=== PATIENT | male | born 1935 | race Caucasian/White ===

== ENCOUNTER → 2020-02-19 10:34 | Outpatient (CLI) | payer OTHER | END | disposition home or self-care (01) | LOC: D.HCCECHO 10:30 | PROVIDERS: ATTEND Internal Medicine Cardiovascular Disease | DX: I20.9 Angina pectoris, unspecified (principal) ==

== ENCOUNTER 2020-03-02 12:12 | Outpatient (CLI) | payer OTHER ==
[~2020-03-02] VITALS: Ht 177.8 cm; Wt 93.5 kg
--- NOTE | ~2020-03-02 | HEMODYNAMI ---
PATIENT:PANCHO SHAW MEDICAL RECORD: [id number] : 31 LOCATION:D.CAT ADMISSION DATE: 03/02/20 Generatedon:03/02/202014:35 Patient name: PANCHO SHAW Patient #: [id number] SSN: [id number] : 1935 Date of study: 03/02/2020 Page: Of Hemodynamic Procedure Report Patient Data Patient Demographics Procedure consent was obtained First Name: PANCHO Gender: Male Last Name: VALERIA : 1935 Middle Initial: E Age: 85 year(s) Patient #: [id number] Race: SSN: [id number] Additional ID: [id number] Contact details Address: [address] [place] [address] [facility] State: [place] City: [place] Zip code: [address] Past Medical History Allergies Allergen Reaction Date Comments Reported Other allergy 03/02/2020 Sulfa Admission Admission Data Admission Date: 03/02/2020 Admission Time: 12:12 Admit Source: Other Insurance Payor: Private health insurance [facility] #: [id number] Height (in.): 69.69 BSA: 2.1 (m2) Height (cm.): 177 BMI: 29.68 (kg/m2) Weight (lbs.): 205.03 Weight (kg.): 93 Lab Results Lab Result Date: 03/02/2020 Lab Result Time: 12:50 Biochemistry Name Units Result Min Max BUN mg/dl 31 --(----)-* 7 18 Creatinine mg/dl 1.8 --(----)-* 0.6 1.3 CBC Name Units Result Min Max Hematocrit % 40.5 -*(----)-- 42 54 Hemoglobin g/dl 13.2 -*(----)-- 13.5 17.5 Procedure Procedure Types Cath Procedure Diagnostic Procedure [facility] w/Coronaries Sedation Charges Moderate Sedation up to 30 minutes PCI Procedure Coronary Stent Coronary Stent Initial Hemochron ACT Test Procedure Description Procedure Date Procedure Date: 03/02/2020 Procedure Start Time: 14:07 Procedure End Time: 14:32 Procedure Staff Name Function Carlo Villalobos MD Performing Physician Salma Owens RT Scrub Kareem Lorenzo RN Nurse Snow Moreno RT Monitor Procedure Data Cath Procedure Fluoroscopy Diagnostic fluoroscopy Total fluoroscopy Time: 7.2 time: 7.2 min min Diagnostic fluoroscopy Total fluoroscopy dose: 983 dose: 983 mGy mGy Contrast Material Contrast Material Type Amount (ml) Isovue 300 90 Entry Location Entry Primary Successful Side Size Upsize Upsize Entry Closure Lewis ccessful Closure Location (Fr) 1 (Fr) 2 (Fr) Remarks Device Remarks Radial Right 6 Fr Mechanical artery Short Compression Estimated blood loss: 10 ml Diagnostic catheters Device Type Used For End Catheter Placement DIAGNOSTIC Kenneth 110cm Procedure 5Fr catheter (633005) DIAGNOSTIC Sevier 110cm 5 Procedure Fr catheter ([id number]) Procedure Complications No complications Procedure Medications Medication Administration Route Dosage 0.9% NaCl I.V. 100 ml/hr Oxygen etCO2 Nasal cannula 2 l/min Heparin Flush Bag added to field 2 bags (1000units/500ml NS) Lidocaine 2% added to field 20 Radial Cocktail added to field 1 syringe (Verapamil 2mg/Nitro 400mcg/Heparin 1500units) Versed I.V. 1 mg Fentanyl I.V. 50 mcg Radial Cocktail I.A. 1 syringe (Verapamil 2mg/Nitro 400mcg/Heparin 1500units) Versed I.V. 1 mg Fentanyl I.V. 50 mcg Heparin Bolus I.V. 9000 units Plavix P.O. 600 mg Hemodynamics Rest BSA: 2.1 (m2) HGB: 13.2 (g/dl) O2 Consumption: Estimated: 239.75 (ml/min) O2 Con sumption indexed: Estimated:114.17 (ml/min/m) Heart Rate: 72 (bpm) Pressure Samples Time Site Value (mmHg) Purpose Heart Use Rate(bpm) 14:10 LV 93/-7,-3 Snapshot 79 Gradients Valve Time Site Site Mean SEP/DFP Peak To Heart Use 1 2 (mmHg) (sec/min) Peak Rate (mmHg) (bpm) Aortic 14:10 LV AO 50 Snapshots Pre Cath Intra NCS Post Cath Vital Signs Time Heart Resp SPO2 etCO2 NIBP Rhythm Pain Sedation Rate (ipm) (%) (mmHg) (mmHg) Status Level (bpm) 13:52:42 54 14 99 17.1 121/62(94) NSR 0 (11) 10(A) , No pain 13:56:56 58 12 96 0 118/68(80) NSR 0 (11) 10(A) , No pain 14:01:10 58 10 96 14.9 113/65(77) NSR 0 (11) 10(A) , No pain 14:05:22 57 11 96 17.1 114/65(79) NSR 0 (11) 10(A) , No pain 14:09:47 57 12 94 34.4 115/47(85) NSR 0 (11) 10(A) , No pain 14:13:58 75 10 92 2.9 89/57(65) NSR 0 (11) 9(A) , No pain 14:18:02 73 12 94 17.1 94/61(79) NSR 0 (11) 9(A) , No pain 14:22:10 60 10 91 17.1 98/54(79) NSR 0 (11) 10(A) , No pain 14:26:20 56 9 91 16.4 101/53(71) NSR 0 (11) 10(A) , No pain 14:30:30 57 12 94 28.4 122/58(95) NSR 0 (11) 10(A) , No pain Medications Time Medication Route Dose Verified Delivered Reason Not es Effectiveness by by 13:50:27 0.9% NaCl I.V. 100 Kareem Kareem Per physician ml/hr Maura Lorenzo RN RN 13:50:39 Oxygen etCO2 2 l/min Kareem Kareem for low 02 sats Nasal Lorigan Lorigan cannula RN RN 13:50:52 Heparin Flush added 2 bags Kareem Kareem used for Bag to Lorigan Lorigan procedure (1000units/500ml RN RN NS) 13:51:05 Lidocaine 2% added 20ml Kareem Kareem for local to vial Lorigan Lorigan anesthetic RN RN 13:51:20 Radial Cocktail added 1 Kareem Kareem used for (Verapamil to syringe Lorigan Lorigan procedure 2mg/Nitro field RN RN 400mcg/Heparin 1500units) 13:59:16 Versed I.V. 1 mg Kareem Kareem for sedation Lorigan Lorigan RN RN 13:59:25 Fentanyl I.V. 50 mcg Kareem Kareem for sedation Maura Lorenzo RN RN 14:08:33 Radial Cocktail I.A. 1 Kareem Carlo for (Verapamil syringe Maura Villalobos MD vasodilation 2mg/Nitro RN 400mcg/Heparin 1500units) 14:08:42 Versed I.V. 1 mg Kareem Kareem for sedation Maura Lorenzo RN RN 14:08:48 Fentanyl I.V. 50 mcg Kareem Kareem for sedation Maura Lorenzo RN RN 14:20:38 Heparin Bolus I.V. 9,000 Kareem Kareem for units Maura Lorenzo anticoagulation RN RN 14:30:05 Plavix P.O. 600 mg Kareem Kareem for Maura Lorenzo antiplatelet RN RN therapy Procedure Log Time Note 13:21:54 Informed consent obtained and on chart 13:22:49 Patient allergic to Other allergySulfa 13:23:36 Admit Source: Other 13:30:12 Kareem Lorenzo RN sent for patient. Start room use. 13:40:45 Patient Height : 69.69 inches 13:40:47 Patient Weight : 205.03 lbs 13:40:53 Insurance Payor : Private health insurance 13:41:44 Lab Result : BUN 31 mg/dl 13:41:44 Lab Result : Creatinine 1.8 mg/dl 13:42:09 Procedure Status Elective Heart Cath (OP). 13:42:18 Time tracking: Regular hours (M-F 7:00 - 5:00) 13:42:21 Plan of Care:Hemodynamics will remain stable., Cardiac rhythm will remain stable., Comfort level will be maintained., Respiratory function will remain adequate., Patient/ family verbilizes understanding of procedure., Procedure tolerated without complication., Recovers from procedure without complications.. 13:42:25 Patient received from Pre/Post Procedure Room to CCL 1 Alert and oriented. Tansferred to table in Supine position. 13:42:26 Warm blankets applied, and nader hugger turned on for patient comfort. 13:42:26 Correct patient and procedure confirmed by team. 13:42:27 ECG and BP/O2 sat monitors applied to patient. 13:42:34 H&P Date Dictated: 02/05/2020 Within 30 days and on chart., H&P Addendum completed by physician on day of procedure. (MUST COMPLETE FOR ALL OUTPATIENTS). 13:42:36 Pre-procedure instructions explained to patient. 13:42:36 Pre-op teaching completed and patient verbalized understanding. 13:42:37 Family in waiting room. 13:42:39 Patient NPO since Breakfast. 13:42:41 Is the patient allergic to Iodine/contrast media? No. 13:50:27 0.9% NaCl 100 ml/hr I.V. was administered by Kareem Lorenzo RN; Per physician; Verbal order read back and verified. 13:50:39 Oxygen 2 l/min etCO2 Nasal cannula was administered by Kareem Lorenzo RN; for low 02 sats; Verbal order read back and verified. 13:50:52 Heparin Flush Bag (1000units/500ml NS) 2 bags added to field was administered by Kareem Lorenzo RN; used for procedure; Verbal order read back and verified. 13:51:05 Lidocaine 2% 20ml vial added to field was administered by Kareem Lorenzo RN; for local anesthetic; Verbal order read back and verified. 13:51:20 Radial Cocktail (Verapamil 2mg/Nitro 400mcg/Heparin 1500units) 1 syringe added to field was administered by Kareem Lorenzo RN; used for procedure; Verbal order read back and verified. 13:51:31 Vital chart was started 13:51:35 Baseline sample Acquired. 13:51:40 Rhythm: sinus rhythm 13:51:42 Full Disclosure recording started 13:51:45 Is patient on blood thinner?No 13:51:48 Patient diabetic? No. 13:54:24 Previous problem with sedation/anesthesia? No ? 13:54:25 Snore? No 13:54:26 Sleep apnea? No 13:54:27 Deviated septum? No 13:54:27 Opens mouth fully? Yes 13:54:28 Sticks out tongue? Yes 13:54:29 Airway obstruction? No ? 13:54:31 Dentures? No ? 13:54:36 Pre procedure: right dorsailis pedis pulse 2+ Normal; easily identifiable; not easily obliterated 13:54:38 Modified David's test Ulnar > 7 seconds. 13:54:39 Patient pain scale 0/10 ?. 13:54:45 IV patent on arrival in right forearm with 0.9% NaCl at [facility]. 13:54:59 Lab results completed and on chart. 13:55:35 Lab Result : Hemoglobin 13.2 g/dl 13:55:35 Lab Result : Hematocrit 40.5 % 13:55:45 Stress Test: yes; abnormal inferior, apical, lateral 13:56:00 Risk of Mortality: 0.6% 13:56:05 Risk of blood transfusion: 1.2% 13:56:16 Risk of BRO: 5.1% 13:56:30 Right Radial & Right Groin area was prepped with chlora-prep and draped in sterile fashion 13:56:30 Alarms reviewed by R. N. 13:56:31 Sharps counted by scrub and verified by R.N. 13:56:37 Use device set Radial Dx or PCI 13:56:37 ACIST Syringe (80732) opened to sterile field. 13:56:38 Medline Cath Pack ([id number]) opened to sterile field. 13:56:38 Bag Decanter (2002S) opened to sterile field. 13:56:39 ACIST Hand Control (06676) opened to sterile field. 13:56:39 ACIST Manifold (85658) opened to sterile field. 13:56:39 Tegaderm 4 x 4 (1626W) opened to sterile field. 13:56:40 MBrace Wrist Support ([id number]) opened to sterile field. 13:56:51 SHEATH 6FR RAIN (5853684) opened to sterile field. 13:56:52 EMERALD Guide Wire (785-167) opened to sterile field. 13:56:54 NEEDLE Cook 21G 4cm Radial (K20866) opened to sterile field. 13:57:01 Physician arrived 13:57:02 --------ALL STOP TIME OUT------ 13:57:02 Final Timeout: patient, procedure, and site verified with staff and physician. All members of the team are in agreement. 13:57:03 Right Radial & Right Groin site verified by team. 13:57:07 Fire Safety Assessment: A--An alcohol-based skin anteseptic being used preoperatively., C--Open oxygen or nitrous oxide is being used., D--An ESU, laser, or fiber-optic light is being used. 13:57:09 Physical assessment completed. ASA score P 2 - A patient with mild systemic disease as per Carlo Villalobos MD. 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 13:57:14 Maximum allowable contrast dose (3.7 X eGFR X 0.75)105 ml. 13:57:17 Sedation plan: IV Moderate Sedation Medication:Versed, Fentanyl 13:59:16 Versed 1 mg I.V. was administered by Kareem Lorenzo RN; for sedation; Verbal order read back and verified. 13:59:25 Fentanyl 50 mcg I.V. was administered by Kareem Lorenzo RN; for sedation; Verbal order read back and verified. 14:02:25 Zero performed for pressure channel P1 14:05:21 Procedure started. 14:07:27 Local anesthetic to right radial artery with Lidocaine 2% by Carlo Villalobos MD.INITIAL ACCESS ONLY 14:08:33 Radial Cocktail (Verapamil 2mg/Nitro 400mcg/Heparin 1500units) 1 syringe I.A. was administered by Carlo Villalobos MD; for vasodilation; Verbal order read back and verified. 14:08:42 Versed 1 mg I.V. was administered by Kareem Lorenzo RN; for sedation; Verbal order read back and verified. 14:08:48 Fentanyl 50 mcg I.V. was administered by Kareem Lorenzo RN; for sedation; Verbal order read back and verified. 14:09:01 A 6 Fr Short sheath was inserted into the Right Radial artery 14:09:11 A DIAGNOSTIC Kenneth 110cm 5Fr catheter (763699) was advanced over the wire and used for Procedure. 14:10:21 LV gram done using CHANG 14:10:23 Injector settings: Ml/sec: 5, Volume: 15, 14:10:24 LV hemodynamics recorded. 14:10:38 EF : 50 % 14:11:38 RCA angiography performed. 14:12:42 Catheter exchanged over wire. 14:12:49 UNABLE TO ENGAGE LCA 14:13:31 A DIAGNOSTIC Sevier 110cm 5 Fr catheter (991801) was advanced over the wire and used for Procedure. 14:15:31 LCA angiography performed. 14:15:35 ACCDominant side:Right 14:15:39 Catheter exchanged over wire. 14:16:20 Proceeding to intervention. 14:17:29 INFLATOR Merit Context Aware Solutionspak (QA5116) opened to sterile field. 14:17:29 BMW 300cm Straight Hodges 2 wire (6518104) opened to sterile field. 14:17:38 TUBING High Pressure Extension Tubing (Wilfredo) ([id number]) opened to sterile field. 14:17:50 GUIDE 6FR XBLAD 3.5 catheter (00856373) opened to sterile field. 14:17:58 Pre PCI Site: [place] LAD has 80% stenosis. 14:18:04 6 Fr XBLAD 3.5 guide catheter was inserted over the wire 14:20:38 Heparin Bolus 9,000 units I.V. was administered by Kareem Lorenzo RN; for anticoagulation; Verbal order read back and verified. 14:21:26 BMW 300 wire advanced. 14:22:01 Wire advanced across lesion. 14:25:56 Place stent Inflation Number: 1 A INTEGRITY RX 3.0 x 15 stent ([id number]) was prepped and advanced across the Mid LAD . The stent was deployed at 12 FIDENCIO for 0:00 (min:sec) . 14:26:25 Stent catheter was removed intact over wire. 14:26:25 Wire removed. 14:26:26 Guide catheter removed. 14:26:49 ZEPHYR REGULAR TR BAND (271922) opened to sterile field. 14:27:44 Sheath removed intact; hemostasis achieved with Mechanical Compression to the Right Radial artery. 14:28:00 Procedure ended.(Physican Out) 14:28:16 Fluoroscopy time 07.20 minutes. 14:28:20 Fluoroscopy dose: 983 mGy 14:28:20 Flurop Dose total: 983 14:28:27 Dose Area Product 87742 mGy/cm. 14:28:30 Contrast amount:Isovue 300 90ml. 14:28:32 Maximum allowable dose exceeded? No. 14:28:33 Sharps counted by scrub and verified by R.N. 14:28:35 Dunse[place] band inflated with 10cc of air. 14:28:38 Post-procedure physical assessment completed. ASA score P 2 - A patient with mild systemic disease as per Carlo Villalobos MD. 14:28:44 Post procedure rhythm: sinus rhythm 14:28:49 Estimated blood loss: 10 ml 14:28:50 Post procedure instruction explained to patient.Patient verbalizes understanding. 14:28:51 Patient needs reinforcement of post procedure teaching. 14:29:47 Procedure type changed to Cath procedure, Diagnostic procedure, LHC, [facility] w/Coronaries, Sedation Charges, Moderate Sedation up to 30 minutes, PCI procedure, Coronary Stent, Coronary Stent Initial, Hemochron ACT Test 14:30:05 Plavix 600 mg P.O. was administered by Kareem Lorenzo RN; for antiplatelet therapy; Verbal order read back and verified. 14:30:21 Procedure and supply charges have been captured, reviewed, submitted and are correct. 14:30:23 Procedure Complication : No complications 14:30:30 [facility] Findings: MVD- PCI performed (see procedure note) 14:30:31 Operative report dictated upon procedure completion. 14:30:31 See physician's report for complete and final results. 14:32:36 Vital chart was stopped 14:32:47 Report given to Pre/Post Procedure Room. 14:32:49 Patient transfered to Pre/Post Procedure Room with Bed. 14:32:51 Procedure ended. 14:32:51 Full Disclosure recording stopped 14:32:58 ACC-PCI Only Patient was given prescriptions, or instructed by Carlo Villalobos MD to start/continue the following medications upon discharge: Plavix 14:32:59 End room use (Document Last) 14:34:11 ACT drawn and resulted at ( High ) out of range seconds. (normal therapeutic range 180-240 seconds). 14:35:07 End room use (Document Last) 14:35:25 End room use (Document Last) Intervention Summary Intervention Notes Time ActionType Lesion and Equipment Action# Pressure Duration Attributes Used 14:25:56 Place stent Mid LAD INTEGRITY RX 1 12 00:00 3.0 x 15 stent ([id number]) Device Usage Item Name Manufacture Quantity Catalog Hospital Part Current Minim al Lot# / Number Charge Number Stock Stock Serial# Code ACIST Acist 1 38816 736567 477120 251931 20 Syringe Medical (23538) Systems Inc Medline Cath Medline 1 [id number] 426753 94325 863993 5 Pack ([id number]) Bag Decanter Microtek 1 110821 01539 478060 5 () Medical Inc. ACIST Hand Acist 1 16313 395542 942273 643940 5 Control Medical (05059) Systems Inc ACIST Acist 1 09043 690713 189835 571004 5 Manifold Medical (77470) Systems Inc Tegaderm 4 x 3M 1 1626W 073239 734433 005245 5 4 (1626W) MBrace Wrist Advanced 1 140-0250-00 850180 22688 072881 5 Support Vascular (754430963) Dynamics SHEATH 6FR Cardinal 1 9755161 132091 6496978 651710 5 [facility] Health (7232436) EMERALD Cardinal 1 502-455 060229 163692 126208 5 Guide Wire Health (502-455) NEEDLE Cook Cook Medical 1 U49757 541727 919173 301319 5 21G 4cm Radial (N38907) DIAGNOSTIC Terumo 1 40-5023 557054 065279 045933 5 Kenneth 110cm 5Fr catheter (908653) DIAGNOSTIC Terumo 1 40-5013 763618 579222 352550 5 Sevier 110cm 5 Fr catheter (877162) INFLATOR Merit 1 FK4312 909082 967665 914645 15 [facility] Medical BasixCompak (QB9592) BMW 300cm Vera 1 6066343 255108 598870 897039 5 Straight Vascular Hodges 2 wire (2813115) TUBING High Merit 1 [id number] 698726 39696 805954 10 Pressure Medical Extension Tubing (Wilfredo) (FC3110D) GUIDE 6FR Cardinal 1 69664302 682738 014731 260878 10 XBLAD 3.5 Health catheter (99721517) INTEGRITY RX Medtronic 1 [id number] 222813 587763 881280 5 [id number] 3.0 x 15 stent ([id number]) ZEPHYR Cardinal 1 054121 376629 4733185 368591 5 REGULAR TR Health BAND (971212) Signature Audit [place] Stage Time Signature Unsigned Intra-Procedure 03/02/2020 Snow Moreno 2:35:07 PM RT(R) Intra-Procedure 03/02/2020 Kareem 2:35:25 PM Maura MICHAELS Intra-Procedure 03/02/2020 Carlo Villalobos MD 2:35:[address] [facility] [address] [facility] [place] [address]
[2020-03-02] MEDS ORDERED: HYTRIN10 MG PO (12:31)
[2020-03-02] MEDS ORDERED: PEPCID AC20 MG PO (12:32)
[2020-03-02] MEDS ORDERED: LIPITOR10 MG PO (12:32)
[2020-03-02 12:51] VITALS: BP 123/77; Ht 177.8 cm; Wt 93.5 kg
[2020-03-02 13:30] LABS: HEMATOCRIT 40.5 % (42.0-54.0); HEMOGLOBIN 13.2 g/dL (13.5-17.5); LYMPHOCYTES 18.8 % (15-50); MCH 31.8 pg (26.0-34.0); MCHC 32.6 g/dL (31.0-37.0); MCV 97.6 fL (80.0-100.0); MEAN PLATELET VOLUME 10.5 fL (7.4-10.4); NEUTROPHILS 69.1 % (40-80); PLATELET COUNT 161 10x3/uL (130-400); RBC 4.15 10x6/uL (4.20-6.10); RDW 13.1 % (11.5-14.5); WBC 8.7 10x3/uL (4.8-10.8)
[2020-03-02 13:33] LABS: ANION GAP 12.5 mmol/L (8-16); CALCIUM 8.6 mg/dL (8.5-10.1); CARBON DIOXIDE 25.6 mmol/L (21.0-32.0); CHOL - HDL RATIO 3.7 ratio (2.3-4.9); CREATININE - SERUM 1.8 mg/dL (0.6-1.3); LDL-HDL RATIO 2.3 ratio (1.5-3.5); POTASSIUM - SERUM 4.1 mmol/L (3.5-5.1)
--- NOTE | 2020-03-02 14:45 | NUR ---
PT REC'D TO ROOM 3 VIA STRETCHER FROM POSTAL CARRIER. MONITORS ESTAB. DAUGHTER AT BS. SEE GLASS ENAMEL MIXER. ALARMS ON AND C/L IN REACH.
--- NOTE | 2020-03-02 15:00 | NUR ---
R WRIST Z BAND SITE C/D/I, NO S/S BLEEDING OR SWELLING. PULSES PALP. VSS. C/L IN REACH.
--- NOTE | 2020-03-02 15:30 | NUR ---
R WRIST SITE C/D/I, NO S/S BLEEDING OR HEMATOMA. PULSES PALP. HAND WARM WITH BRISK CAP REFILL.
--- NOTE | 2020-03-02 15:45 | NUR ---
PT RESTING QUIETLY. R WRIST SITE C/D/I, HAND WARM, PULSES PALP.
[2020-03-02] MEDS ORDERED: PLAVIX75 MG PO (15:58)
[2020-03-02] MEDS ORDERED: BAYER CHEWABLE81 MG PO (15:58)
--- NOTE | 2020-03-02 16:15 | NUR ---
PT SITTING UP IN BED. VSS. R WRIST SITE C/D/I, NO S/S BLEEDING OR SWELLING. SANDWICH TRAY SERVED. DAUGHTER AT BS.
--- NOTE | 2020-03-02 17:00 | NUR ---
2 CC AIR REMOVED FROM Z BAND. NO S/S BLEEDING. WILL CONT CLOSE MONITORING,.
--- NOTE | 2020-03-02 17:15 | NUR ---
TOTAL 4CC AIR REMOVED FROM Z BAND, NO S/S BLEEDING. VSS. PT DENIES NEEDS. ALARMS ON AND C/L IN REACH.
--- NOTE | 2020-03-02 17:30 | NUR ---
TOTAL 7CC AIR REMOVED, NO S/S BLEEDING. VSS.
--- NOTE | 2020-03-02 17:45 | NUR ---
ALL AIR REMOVED FROM Z BAND. NO S/S BLEEDING OR SWELLING. VSS. PULSES PALP. WILL CONT CLOSE MONITORING.
--- NOTE | 2020-03-02 18:15 | NUR ---
R WRIST SITE C/D/I, NO S/S BLEEDING WITH ALL AIR REMOVED. PIV D/C'D INTACT - DSG APPLIED. PT ALLOWED UP TO GET DRESSED AND GO TO BR INDEPENDENTLY.
--- NOTE | 2020-03-02 18:19 | NUR ---
ALL DISCHARGE INSTRUCTIONS, INCLUDING RESTRICTIONS, MEDICATIONS, AND F/U APPT, REVIEWED WITH PT AND HIS DAUGHTER. Z BAND OFF - DSG AND ARM BOARD ON.
--- NOTE | 2020-03-02 18:30 | NUR ---
PT D/C'D VIA W/C TO PRIVATE VEHICLE WITH ALL BELONGINGS AND PAPERWORK.
== END 2020-03-02 18:30 | disposition home or self-care (01) ==
LOC: D.CATH 12:12
PROVIDERS: ATTEND Internal Medicine Cardiovascular Disease
DX: I25.119 Atherosclerotic heart disease of native coronary artery with unspecified angina pectoris (principal); R94.39 Abnormal result of other cardiovascular function study; E78.5 Hyperlipidemia, unspecified; K21.9 Gastro-esophageal reflux disease without esophagitis; R07.9 Chest pain, unspecified